=== PATIENT | female | born 1950 | race Caucasian/White ===

== ENCOUNTER 2017-01-17 09:08 | Inpatient (IN) | payer BC ==
[2017-01-14 20:53] LABS: HEMATOCRIT 35.3 % (36.0-48.0); HEMOGLOBIN 11.8 g/dL (12.0-16.0); MEAN CORPUS HGB CONC 33.6 g/dL (32.0-36.0); MEAN CORPUSCULAR VOLUME 89.4 fL (80-100); MEAN PLATELET VOLUME 8.1 fL (6.8-10.8); PLATELET COUNT 406 10/3/uL (150-400); RBC DISTRIBUTION WIDTH 15.6 % (12.0-16.0); RED CELL COUNT 3.94 10/6/uL (4.0-5.6)
[2017-01-14 21:04] LABS: WHITE BLOOD CELLS 6.6 10/3/uL (4.5-10.5)
[2017-01-14 23:18] LABS: A/G RATIO 0.5 (0.7-1.9); ALBUMIN 2.9 G/DL (3.5-5.0); CALCIUM, SERUM 8.8 MG/DL (8.5-10.4); CHLORIDE, SERUM 106 MMOL/L (96-112); CO2 (CARBON DIOXIDE) 21 MMOL/L (24-34); CREATININE 1.57 MG/DL (0.55-1.02); GAMMA GT 58 U/L (5-85); GFR AFRICAN AMERICAN 39 ML/MIN (>=60); GFR NON AFRICAN AMERICAN 34 ML/MIN (>=60); GLOBULIN 6.1 G/DL (2.5-4.1); GLUCOSE, SERUM 102 MG/DL (60-99); SGOT(AST) 428 U/L (5-40); SGPT(ALT) 990 U/L (5-65); SODIUM, SERUM 140 MMOL/L (135-148); TOTAL BILIRUBIN 0.6 MG/DL (0-1.2)
[2017-01-14 23:25] LABS: ALKALINE PHOSPHATASE 175 U/L (45-117); BUN (BLOOD UREA NITROGEN) 14 MG/DL (6-23); POTASSIUM, SERUM 4.3 MMOL/L (3.5-5.3)
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
--- NOTE | ~2017-01-17 | CN ---
Consultation Report [facility] [address] [place]. [address] NAME: KATIE HAY : 46 STATUS : ADM IN [facility]#: [id number] AGE: 66 ADM/REG DATE : 01/17/17 MR#: [id number] REPORT SERV DATE: 01/22/17 DICTATED BY: GM REICH II DATE: 01/21/17 REPORT STATUS : Draft TRANSCRIBED BY: MODLiudmila DATE: 01/21/17 CONSULT DATE OF CONSULTATION: 01/21/2017 REASON FOR CONSULTATION: Subclavian stenosis. HISTORY OF PRESENT ILLNESS: Ms. Hay is a pleasant 66-year-old female who presented with aphasia and history of atrial fibrillation for which she was on anticoagulation for. During her workup, she was found to have evidence of a left subclavian stenosis. The patient has made a recovery from her stroke and now has mild aphasia. She reports occasional discomfort and fatigue in the left arm with occasional claudication symptoms. She reports also a history of dizziness that has been present for over the past several months. She has no complaints in her right upper extremity. PAST MEDICAL HISTORY: Congestive heart failure and hypertension. PAST SURGICAL HISTORY: None. CURRENT MEDICATIONS: Include Coumadin, aspirin, Coreg, Colace, Aldactone, Spiriva, Demadex. ALLERGIES: NONE REPORTED. SOCIAL HISTORY: She lives with her daughter. She has no history of smoking; however, she lived with a heavy smoker for more than 20 years. FAMILY HISTORY: Noncontributory. PHYSICAL EXAMINATION: GENERAL: Awake, alert, pleasant female, in no acute distress. VITAL SIGNS: Her blood pressure is 108/29, respiratory rate is 18, pulse is 70. HEENT: Airways are clear. Mucous membranes are moist. Extraocular movements intact. NECK: No cervical bruits or JVDs noted. UPPER EXTREMITIES: Palpable pulses with diminished radial pulse on the left side. Bruits noted in the left axilla. CHEST: Clear breath sounds equal bilaterally. CARDIOVASCULAR: Regular rate and rhythm. No murmur. ABDOMEN: Soft and nontender. No pulsatile mass. BACK: Symmetric. No focal tenderness. LOWER EXTREMITIES: Palpable femoral pulses with diminished pedal pulses. Scattered varicosities. No edema. No open lesions or ulcerations. NEUROLOGIC: Except for mild expressive aphasia, no other focal neurologic deficits noted. IMAGING: Demonstrates grade 1 carotid stenosis bilaterally without significant occlusive Consultation Report [place] [id number] [place]. [address] NAME: KATIE HAY : 46 STATUS : ADM IN PAT#: [id number] AGE: 66 ADM/REG DATE : 01/17/17 MR#: [id number] REPORT SERV DATE: 01/22/17 DICTATED BY: GM REICH II DATE: 01/21/17 REPORT STATUS : Draft TRANSCRIBED BY: MODL DATE: 01/21/17 disease. Retrograde flow was noted in the left vertebral without abnormal waveforms within the subclavian. ASSESSMENT AND PLAN: A 66-year-old female with severe left subclavian stenosis with retrograde flow within the left vertebral. She has [id number] subclavian steal syndrome with a non-threatened extremities at this time. I have recommended continuing her current medical therapy at this time. We will plan for further evaluation and possible treatment once she has recovered from her recent neurologic event. Also of note, she has diminished pedal pulses and I have recommended arterial Doppler as an outpatient. LILI/JAYCOB Gm Reich II, M.D. / [id number] CC: Yamini Mishra III, D.O.
--- NOTE | ~2017-01-17 | CN ---
Consultation Report [facility] [address] [place]. [address] NAME: KATIE PALAFOX : 46 STATUS : ADM IN PAT#: [id number] AGE: 66 ADM/REG DATE : 01/17/17 MR#: [id number] REPORT SERV DATE: 01/22/17 DICTATED BY: MOSES ZURITA DATE: 01/21/17 REPORT STATUS : Draft TRANSCRIBED BY: MODL DATE: 01/21/17 CONSULTATION DATE OF CONSULTATION: HISTORY OF PRESENT ILLNESS: This is a 66-year-old white female admitted with expressive aphasia, which is improving. MRI has revealed small CVA. Also, her workups included an abnormal narrowing left subclavian artery. Had a history of strep pneumonia requiring three month hospitalization from 07/2016 to 09/2016. Had large pleural effusion, which was treated by Dr. Higgins. Also, has had atrial fib, on Coumadin. INR 2.7 this admission. History of gastroparesis with recent confirmation noted on gastric emptying study. Has been on Reglan for that. Has been trying to wean off. Also had elevated LFTs in July and has recurrent LFTs elevated, which have been slow to trend downward. Ultrasound reveals sludge and gallstones. No current GI complaints. History of cardiomyopathy with CHF. Has been seen by Dr. Sigala for her gallbladder. He felt no surgery indicated. Tissue is more stable. Also, recent UTIs have been treated. SOCIAL HISTORY: Negative. FAMILY HISTORY: Negative. She has had some vaginal bleeding, being worked up by Dr. Rodriguez. Her albumin is 2.8 today. Total bilirubin normal at 0.6. Alkaline phos 168. ALT 595. AST 274. PHYSICAL EXAMINATION: GENERAL: Well-developed, well-nourished white female, alert, still has some difficulty in expressing herself, much improved from admission apparently. HEENT: Anicteric. NECK: Negative. CHEST: Clear to percussion. HEART: Irregular rhythm. ABDOMEN: Soft, nontender. Bowel sounds active. EXTREMITIES/NEUROLOGIC: Again pertinent for some residual expressive aphasia. ASSESSMENT: 1. Expressive aphasia with acute cerebrovascular accident, improving, tolerating diet. 2. Three-month hospitalization 07/2016 to 09/2016 with strep pneumonia. 3. Atrial fibrillation, on Coumadin. INR 2.7. Cardiomyopathy, congestive heart failure. 4. Recent urinary tract infection, treated. 5. Gastroparesis. Tolerating diet. 6. Elevated LFTs. Ultrasound, gallbladder sludge and stones. No GI complaints. Normal bilirubin. These have been elevated on previous admission as well. Her hepatitis A, Consultation Report [place] [id number] [place]. [address] NAME: KATIE PALAFOX : 46 STATUS : ADM IN PAT#: [id number] AGE: 66 ADM/REG DATE : 01/17/17 MR#: [id number] REPORT SERV DATE: 01/22/17 DICTATED BY: MOSES ZURITA DATE: 01/21/17 REPORT STATUS : Draft TRANSCRIBED BY: MODL DATE: 01/21/17 B, and C are negative. Suspect multifactorial etiology, but we will evaluate with further blood work. SUGGESTION: We will check ISABELL, anti smooth muscle antibody, AMA, and repeat LFTs. May need further hepatic imaging if LFTs do not improve. Dr. Curtis will be covering in my absence. Thank you very much for this consultation. ROCAEL/JAYCOB Moses Zurita M.D. / [id number] CC: Yamini Manzanares III, D.O.
--- NOTE | ~2017-01-17 | CN ---
Consultation Report [facility] [address] [place]. [address] NAME: KATIE PALAFOX : 46 STATUS : ADM IN [facility]#: [id number] AGE: 66 ADM/REG DATE : 01/17/17 MR#: [id number] REPORT SERV DATE: 01/21/17 DICTATED BY: DATE: REPORT STATUS : Draft TRANSCRIBED BY: MODL DATE: 01/21/17 NEUROLOGY CONSULTATION DATE OF CONSULTATION: 01/21/2017 REASON FOR CONSULT: Stroke. HISTORY OF PRESENT ILLNESS: This is a 66-year-old female who presented to [facility] secondary to acute onset of difficulty talking with the patient having difficulty getting words out and was noted to be slow to respond but otherwise was not noted to have any dysarthria. No discernible weakness was noted. Symptoms started when the patient woke up on 01/17/2017. The patient was noted to have concurrent urinary tract infection. In addition, the patient was noted to have a recent illness with the patient noted to have gallbladder disease as well as streptococcal pneumonia with subsequent septic shock resulting in acute kidney injury. The patient, in addition, was also noted to have chronic atrial fibrillation, previously on Xarelto and recently changed to Coumadin secondary to again acute kidney injury. The patient, otherwise, has not had any recent illness, fever, chills, nausea, vomiting, chest pain, or shortness of breath. The patient has not had a previous trial of cholesterol medication and no reports of tobacco usage. No other changes of medication recently. PAST MEDICAL HISTORY: The patient's past medical history is significant for recent septic shock as well as gallbladder disease; abnormal liver panel as well as history of congestive heart failure as well as history of hypertension. The patient was followed by Dr. Flores for the patient's gastrointestinal issue with the patient also noted to have a history of gastroparesis. The patient was noted to have multiple drug intolerances including Lovenox, Versed, sulfa, nitrous oxide, Ativan, and codeine. FAMILY HISTORY: Significant for hypertension, metastatic gastric cancer, Parkinson's disease, and lung cancer. SOCIAL HISTORY: Denies tobacco, alcohol, or recreational drug usage. HOME MEDICATIONS: The patient's home medications consist of albuterol; Coreg; ciprofloxacin; docusate; Marinol; Remeron; Dulera; Aldactone; Spiriva; torsemide; and warfarin. The patient reports compliance with the medication. REVIEW OF SYSTEMS: Negative except for those mentioned in the HPI. Of note, the patient does have recent lab work performed at the PCPs office with the patient's lab work reportedly abnormal although specifics was unknown. The patient has had a repeat lab work drawn prior to hospital admission and was noted by the PCP's office to be abnormal again. No specific was otherwise Consultation Report [address] [place]. [address] NAME: KATIE PALAFOX : 46 STATUS : ADM IN PAT#: [id number] AGE: 66 ADM/REG DATE : 01/17/17 MR#: [id number] REPORT SERV DATE: 01/21/17 DICTATED BY: DATE: REPORT STATUS : Draft TRANSCRIBED BY: JAYCOB DATE: 01/21/17 reported. PHYSICAL EXAMINATION: VITAL SIGNS: The patient's overnight vital signs demonstrated T-max of 99.3, heart rate of 59 to 103, respiration of 16 to 20, and blood pressure of 96 to 114 over 54 to 65. GENERAL: The patient is well developed, well nourished, in no acute distress. CARDIOVASCULAR EXAMINATION: Regular rate and rhythm. No carotid bruits were otherwise auscultated. PULMONARY: Examination was clear to auscultation bilaterally. NEUROLOGICAL EXAMINATION: Generally patient is alert and oriented to person, place, year, and month. Mild expressive aphasia was noted. No clear receptive aphasia was noted. The patient was noted to be able to follow simple and 2-step commands and no clear dysarthria was noted. Registration and recall were unreliable secondary to aphasia, delayed verbal response was noted at the time of evaluation. Cranial nerves 2 through 12, pupils equal, round, and reactive to light. Horizontal eye movement was noted to be intact with intact vertical eye movement. Peripheral vision was noted to be intact. No clear visual neglect was noted. The patient does demonstrate a mild decreased nasolabial fold and right-sided facial droop at the time of evaluation. Reports symmetrical facial sensation. Midline tongue. Normal palatal movement and was noted to have minimal decreased hearing in bilateral ears. Mild pronator drift in the right upper extremity. Otherwise, 5/5 bilateral upper extremity strength was noted to have 5/5 bilateral lower extremity strength. Reports symmetrical sensation in bilateral upper and lower extremity. Normal [id number] examination without ataxia. The patient demonstrated normal station and normal gait. LABORATORY STUDIES: Demonstrated white blood cell count of 7.9, hemoglobin of 10.4, hematocrit of 30.5, and platelet count of 316. INR of 2.7. Procalcitonin was 0.41. Sodium of 140, potassium 4.6, chloride 108, bicarb of 25, BUN of 19, and creatinine of 1.57. Glucose of 95. Calcium of 8.5. Hepatitis B is otherwise nonreactive. MRI of the brain was reviewed. Left MCA stroke was noted. Echocardiogram was noted EF of 40 to 45%. Dilated bilateral atrium was noted. No apical thrombus was seen. Carotid Doppler study demonstrated no acute stenosis. IMPRESSION: 1. Left MCA stroke. We will continue Coumadin. We will start the patient on Lipitor 40 mg p.o. at bedtime. 2. Unfortunately,we will not start the patient on full-dose Lipitor secondary to elevated liver function panel. We will continue speech therapy and arrange for rehabilitation. The patient's current NIH stroke scale was noted to be 3. 3. Abnormal lab study. We will obtain records from the patient's primary care physician. RECOMMENDATIONS: 1. Lipitor 40 mg p.o. at bedtime. We will monitor liver function tests. 2. Aspirin and Coumadin. 3. Records from PCP's office. 4. PT/OT. 5. Rehab. Consultation Report [address] [place]. [address] NAME: KATIE PALAFOX : 46 STATUS : ADM IN [facility]#: [id number] AGE: 66 ADM/REG DATE : 01/17/17 MR#: [id number] REPORT SERV DATE: 01/21/17 DICTATED BY: DATE: REPORT STATUS : Draft TRANSCRIBED BY: MODL DATE: 01/21/17 [facility]/MODLiudmila Carlos Serrano MD / [id number] CC: Yamini Mishra III, D.O.
[~2017-01-17 09:08] MED LIST: 8 HOUR650 MG PO; ADVIL PO; ALPHA LIPOIC ACID 200 MG PO; CAPSAICIN CREAM TOP; CHONDR PO; CIP5 PO; CO Q-10200 MG PO; COENZYME Q10 PO; GLUCOSA PO; KDUR20 PO; L20 PO; MAXIMUM D3 PO; NASONEX NAS; NORCO1 TA1 PO; PR25 PO; PR25R PR; PRIN2.5 PO; PROBIOTIC OTC PO; TOPXL25 PO; VASCULERA 630 MG PO; VASCULERA PO; VITAMIN C PO; VITAMIN D PO; VITC500 PO; XARELTO20 MG PO; ZESTRIL2.5 MG PO; ZOFRANODT8 PO
[2017-01-17 10:09] LABS: BASOPHILS 0.7 %; BASOPHILS ABSOLUTE 0.06 10/3/uL (0.0-0.16); EOSINOPHILS 1.6 %; EOSINOPHILS ABSOLUTE 0.13 10/3/uL (0.0-0.53); HEMATOCRIT 32.5 % (36.0-48.0); HEMOGLOBIN 11.1 g/dL (12.0-16.0); IMMATURE GRANULOCYTES 0.5 %; IMMATURE GRANULOCYTES ABSOLUTE 0.04 10/3/uL (0.0-0.11); LYMPHOCYTES 23.4 %; LYMPHOCYTES ABSOLUTE 1.92 10/3/uL (0.67-4.30); MEAN CORPUS HGB CONC 34.2 g/dL (32.0-36.0); MEAN CORPUSCULAR HEMOGLOB 30.3 pg (26.0-34.0); MEAN CORPUSCULAR VOLUME 88.8 fL (80-100); MEAN PLATELET VOLUME 8.8 fL (9.2-13.0); MONOCYTES 4.1 %; MONOCYTES ABSOLUTE 0.34 10/3/uL (0.21-1.20); NEUTROPHILS 69.7 %; NEUTROPHILS ABSOLUTE 5.72 10/3/uL (2.02-8.40); PLATELET COUNT 336 10/3/uL (150-400); RBC DISTRIBUTION WIDTH 14.5 % (12.0-16.0); RED CELL COUNT 3.66 10/6/uL (4.0-5.6); WHITE BLOOD CELLS 8.2 10/3/uL (4.5-10.5)
[2017-01-17 10:10] LABS: ER CBC TAT 0 Hrs 05 Mins; MANUAL DIFF NO %
[2017-01-17 10:17] LABS: PARTIAL THROMBO TIME 38.6 SEC (22.5-37.2); PROTIME (NOT ORD) 22.2 SEC (12.0-14.5)
[2017-01-17 10:28] LABS: A/G RATIO 0.5 (0.7-1.9); ALBUMIN 2.7 G/DL (3.5-5.0); ALKALINE PHOSPHATASE 160 U/L (45-117); BUN (BLOOD UREA NITROGEN) 18 MG/DL (6-23); CALCIUM, SERUM 8.4 MG/DL (8.5-10.4); CHLORIDE, SERUM 112 MMOL/L (96-112); CO2 (CARBON DIOXIDE) 23 MMOL/L (24-34); CREATININE 1.35 MG/DL (0.55-1.02); GFR AFRICAN AMERICAN 47 ML/MIN (>=60); GFR NON AFRICAN AMERICAN 40 ML/MIN (>=60); GLOBULIN 5.3 G/DL (2.5-4.1); GLUCOSE, SERUM 91 MG/DL (60-99); POTASSIUM, SERUM 3.7 MMOL/L (3.5-5.3); SGOT(AST) 422 U/L (5-40); SGPT(ALT) 869 U/L (5-65); SODIUM, SERUM 141 MMOL/L (135-148); TOTAL BILIRUBIN 0.7 MG/DL (0-1.2)
[2017-01-17 10:31] LABS: LACTATE 1.2 MMOL/L (0.3-2.4)
[2017-01-17] MEDS ORDERED: DEMA10T PO (10:46)
[2017-01-17] MEDS ORDERED: COREG3 PO (10:47)
[2017-01-17] MEDS ORDERED: COUMADIN4 MG PO (10:47)
[2017-01-17] MEDS ORDERED: REM15 PO (10:50)
[2017-01-17] MEDS ORDERED: SPIRO25 PO (10:50)
[2017-01-17] MEDS ORDERED: CIP2 PO (10:50)
[2017-01-17 10:51] LABS: PROCALCITONIN 0.58 ng/mL (<0.5)
[2017-01-17] MEDS ORDERED: D.O.S.100 MG PO (10:51)
[2017-01-17] MEDS ORDERED: PROAIR HFA INH (10:52)
[2017-01-17] MEDS ORDERED: SPIRIVA INH (10:52)
[2017-01-17] MEDS ORDERED: DULERA 200 MCG/13 GM INH (10:52)
[2017-01-17] MEDS ORDERED: MARI5 PO (10:53)
[2017-01-17 19:36] LABS: CHOL/HDL RATIO(NOT ORDER) 8.6 (0-5); CHOLESTEROL 249 MG/DL (< 200); HDL CHOLESTEROL 29 MG/DL (> 49); LDL CHOLESTEROL 173 MG/DL (< 130); NON-HDL CHOLESTEROL 220 MG/DL (< 160); TRIGLYCERIDE 236 MG/DL (< 150)
[2017-01-17 19:53] LABS: ASCORBIC ACID (UR NOT ORDER) NEG (NEG); BILIRUBIN, URINE NEGATIVE (NEG); KETONE, URINE NEGATIVE (NEG); LEUKOCYTE ESTERASE(NOT OR NEG (NEG); WBC (NOT ORDERED) (RFLEX) 5 (0-5)
[2017-01-18 07:01] LABS: BASOPHILS 0.6 %; BASOPHILS ABSOLUTE 0.04 10/3/uL (0.0-0.16); EOSINOPHILS 2.4 %; EOSINOPHILS ABSOLUTE 0.15 10/3/uL (0.0-0.53); HEMATOCRIT 30.7 % (36.0-48.0); HEMOGLOBIN 10.4 g/dL (12.0-16.0); IMMATURE GRANULOCYTES 0.6 %; IMMATURE GRANULOCYTES ABSOLUTE 0.04 10/3/uL (0.0-0.11); LYMPHOCYTES 35.1 %; LYMPHOCYTES ABSOLUTE 2.22 10/3/uL (0.67-4.30); MEAN CORPUS HGB CONC 33.9 g/dL (32.0-36.0); MEAN CORPUSCULAR HEMOGLOB 30.4 pg (26.0-34.0); MEAN CORPUSCULAR VOLUME 89.8 fL (80-100); MEAN PLATELET VOLUME 8.9 fL (9.2-13.0); MONOCYTES 6.2 %; MONOCYTES ABSOLUTE 0.39 10/3/uL (0.21-1.20); NEUTROPHILS 55.1 %; NEUTROPHILS ABSOLUTE 3.48 10/3/uL (2.02-8.40); PLATELET COUNT 311 10/3/uL (150-400); RBC DISTRIBUTION WIDTH 14.8 % (12.0-16.0); RED CELL COUNT 3.42 10/6/uL (4.0-5.6); WHITE BLOOD CELLS 6.3 10/3/uL (4.5-10.5)
[2017-01-18 07:06] LABS: INTERNATIONAL NORMAL RATI 2.2 UNITS (-); PROTIME (NOT ORD) 24.5 SEC (12.0-14.5)
[2017-01-18 07:07] LABS: MANUAL DIFF NO %
[2017-01-18 07:20] LABS: ALBUMIN 2.3 G/DL (3.5-5.0); BUN (BLOOD UREA NITROGEN) 15 MG/DL (6-23); CHLORIDE, SERUM 114 MMOL/L (96-112); CO2 (CARBON DIOXIDE) 22 MMOL/L (24-34); CREATININE 1.26 MG/DL (0.55-1.02); GFR AFRICAN AMERICAN 51 ML/MIN (>=60); GFR NON AFRICAN AMERICAN 44 ML/MIN (>=60); POTASSIUM, SERUM 4.1 MMOL/L (3.5-5.3); SGOT(AST) 293 U/L (5-40); SGPT(ALT) 660 U/L (5-65); SODIUM, SERUM 143 MMOL/L (135-148); TOTAL PROTEIN 6.5 G/DL (6.0-8.5)
[2017-01-18 07:26] LABS: A/G RATIO 0.5 (0.7-1.9); ALKALINE PHOSPHATASE 146 U/L (45-117); GLOBULIN 4.2 G/DL (2.5-4.1); GLUCOSE, SERUM 104 MG/DL (60-99); TOTAL BILIRUBIN 1.2 MG/DL (0-1.2)
[2017-01-19 10:00] LABS: INTERNATIONAL NORMAL RATI 2.4 UNITS (-); PROTIME (NOT ORD) 25.5 SEC (12.0-14.5)
[2017-01-19 10:48] LABS: A/G RATIO 0.5 (0.7-1.9); ALBUMIN 2.3 G/DL (3.5-5.0); ALKALINE PHOSPHATASE 147 U/L (45-117); BUN (BLOOD UREA NITROGEN) 14 MG/DL (6-23); CALCIUM, SERUM 8.6 MG/DL (8.5-10.4); CHLORIDE, SERUM 111 MMOL/L (96-112); CO2 (CARBON DIOXIDE) 20 MMOL/L (24-34); CREATININE 1.36 MG/DL (0.55-1.02); GFR AFRICAN AMERICAN 46 ML/MIN (>=60); GFR NON AFRICAN AMERICAN 40 ML/MIN (>=60); GLUCOSE, SERUM 97 MG/DL (60-99); POTASSIUM, SERUM 3.9 MMOL/L (3.5-5.3); SGOT(AST) 295 U/L (5-40); SGPT(ALT) 623 U/L (5-65); SODIUM, SERUM 139 MMOL/L (135-148); TOTAL PROTEIN 7.3 G/DL (6.0-8.5)
[2017-01-19 10:49] LABS: TOTAL BILIRUBIN 0.7 MG/DL (0-1.2)
[2017-01-20 05:26] LABS: INTERNATIONAL NORMAL RATI 2.7 UNITS (-); PROTIME (NOT ORD) 28.5 SEC (12.0-14.5)
[2017-01-20 05:30] LABS: BASOPHILS 0.6 %; BASOPHILS ABSOLUTE 0.05 10/3/uL (0.0-0.16); EOSINOPHILS 1.7 %; EOSINOPHILS ABSOLUTE 0.13 10/3/uL (0.0-0.53); HEMATOCRIT 30.5 % (36.0-48.0); HEMOGLOBIN 10.4 g/dL (12.0-16.0); IMMATURE GRANULOCYTES 0.5 %; IMMATURE GRANULOCYTES ABSOLUTE 0.04 10/3/uL (0.0-0.11); LYMPHOCYTES 34.9 %; LYMPHOCYTES ABSOLUTE 2.74 10/3/uL (0.67-4.30); MANUAL DIFF NO %; MEAN CORPUS HGB CONC 34.1 g/dL (32.0-36.0); MEAN CORPUSCULAR HEMOGLOB 30.5 pg (26.0-34.0); MEAN CORPUSCULAR VOLUME 89.4 fL (80-100); MONOCYTES ABSOLUTE 0.47 10/3/uL (0.21-1.20); NEUTROPHILS 56.3 %; NEUTROPHILS ABSOLUTE 4.43 10/3/uL (2.02-8.40); PLATELET COUNT 316 10/3/uL (150-400); RBC DISTRIBUTION WIDTH 14.6 % (12.0-16.0); RED CELL COUNT 3.41 10/6/uL (4.0-5.6); WHITE BLOOD CELLS 7.9 10/3/uL (4.5-10.5)
[2017-01-20 05:44] LABS: A/G RATIO 0.5 (0.7-1.9); ALBUMIN 2.4 G/DL (3.5-5.0); CHLORIDE, SERUM 108 MMOL/L (96-112); CREATININE 1.57 MG/DL (0.55-1.02); GFR AFRICAN AMERICAN 39 ML/MIN (>=60); GFR NON AFRICAN AMERICAN 34 ML/MIN (>=60); GLOBULIN 5.2 G/DL (2.5-4.1); POTASSIUM, SERUM 4.6 MMOL/L (3.5-5.3); SODIUM, SERUM 140 MMOL/L (135-148); TOTAL PROTEIN 7.6 G/DL (6.0-8.5)
[2017-01-20 05:45] LABS: BUN (BLOOD UREA NITROGEN) 19 MG/DL (6-23); CO2 (CARBON DIOXIDE) 25 MMOL/L (24-34); SGOT(AST) 298 U/L (5-40); SGPT(ALT) 585 U/L (5-65)
[2017-01-20 05:46] LABS: ALKALINE PHOSPHATASE 138 U/L (45-117); CALCIUM, SERUM 8.5 MG/DL (8.5-10.4); GLUCOSE, SERUM 95 MG/DL (60-99); TOTAL BILIRUBIN 0.5 MG/DL (0-1.2)
[2017-01-20 12:08] LABS: PROCALCITONIN 0.41 ng/mL (<0.5)
[2017-01-21 05:31] LABS: INTERNATIONAL NORMAL RATI 2.7 UNITS (-); PROTIME (NOT ORD) 28.3 SEC (12.0-14.5)
[2017-01-21 11:37] LABS: HEPATITIS B SURFACE ANTIGEN NON-REACTIVE (NON-REACT)
[2017-01-21 12:05] LABS: HEPATITIS B CORE AB IGM NON-REACTIVE (NON-REAC); HEPATITIS C ANTIBODY NON-REACTIVE (NON-REACT)
[2017-01-21 12:07] LABS: HEP A ANTIBODY IGM NON-REACTIVE (NON-REACT)
[2017-01-21 14:40] LABS: A/G RATIO 0.6 (0.7-1.9); ALBUMIN 2.8 G/DL (3.5-5.0); BUN (BLOOD UREA NITROGEN) 19 MG/DL (6-23); CALCIUM, SERUM 8.7 MG/DL (8.5-10.4); CHLORIDE, SERUM 109 MMOL/L (96-112); CO2 (CARBON DIOXIDE) 22 MMOL/L (24-34); CREATININE 1.34 MG/DL (0.55-1.02); GFR AFRICAN AMERICAN 47 ML/MIN (>=60); GFR NON AFRICAN AMERICAN 41 ML/MIN (>=60); GLOBULIN 4.4 G/DL (2.5-4.1); POTASSIUM, SERUM 4.4 MMOL/L (3.5-5.3); SGOT(AST) 274 U/L (5-40); SGPT(ALT) 595 U/L (5-65); SODIUM, SERUM 140 MMOL/L (135-148); TOTAL BILIRUBIN 0.6 MG/DL (0-1.2); TOTAL PROTEIN 7.2 G/DL (6.0-8.5)
[2017-01-21 14:42] LABS: ALKALINE PHOSPHATASE 168 U/L (45-117)
[2017-01-21 14:43] LABS: GLUCOSE, SERUM 58 MG/DL (60-99)
[2017-01-22 06:31] LABS: INTERNATIONAL NORMAL RATI 2.6 UNITS (-); PROTIME (NOT ORD) 27.5 SEC (12.0-14.5)
[2017-01-22 06:41] LABS: A/G RATIO 0.5 (0.7-1.9); ALBUMIN 2.5 G/DL (3.5-5.0); BUN (BLOOD UREA NITROGEN) 19 MG/DL (6-23); CHLORIDE, SERUM 108 MMOL/L (96-112); CO2 (CARBON DIOXIDE) 25 MMOL/L (24-34); CREATININE 1.43 MG/DL (0.55-1.02); GFR AFRICAN AMERICAN 44 ML/MIN (>=60); GFR NON AFRICAN AMERICAN 38 ML/MIN (>=60); GLOBULIN 5.1 G/DL (2.5-4.1); POTASSIUM, SERUM 4.3 MMOL/L (3.5-5.3); SODIUM, SERUM 141 MMOL/L (135-148); TOTAL PROTEIN 7.6 G/DL (6.0-8.5)
[2017-01-22 06:44] LABS: ALKALINE PHOSPHATASE 158 U/L (45-117); CALCIUM, SERUM 8.2 MG/DL (8.5-10.4); DIRECT BILIRUBIN 0.1 MG/DL (0.0-0.4); GLUCOSE, SERUM 103 MG/DL (60-99); INDIRECT BILIRUBIN(NOT ORDER) 0.4 MG/DL (0.1-0.9); TOTAL BILIRUBIN 0.5 MG/DL (0-1.2)
[2017-01-22 06:45] LABS: SGOT(AST) 242 U/L (5-40); SGPT(ALT) 533 U/L (5-65)
[2017-01-22 10:41] LABS: ANA TITER <1:40 TITER
[2017-01-22] MEDS ORDERED: ASAB PO (12:35)
[2017-01-22] MEDS ORDERED: ACULARLS OPH (12:35)
[2017-01-22] MEDS ORDERED: MELA3 PO (12:44)
[2017-01-24 13:56] LABS: MITOCHONDRIAL ANTIBODY Negative (NEG); SMOOTH MUSCLE ANTIBODIES Negative (NEG)
[2017-04-29] MEDS ORDERED: DEMA10T (18:27)
[2017-04-29] MEDS ORDERED: XARELTO15 MG PO ×2 (18:27→20:11)
[2017-04-29] MEDS ORDERED: ASAB PO (20:11)
[2017-04-29] MEDS ORDERED: REM15 PO (20:11)
[2017-04-29] MEDS ORDERED: COREG3 PO (20:11)
[2017-04-29] MEDS ORDERED: DSS PO (20:11)
[2017-04-29] MEDS ORDERED: MELA3 PO (20:12)
[2017-04-29] MEDS ORDERED: DEMADEX5 MG PO (20:12)
[2017-04-29] MEDS ORDERED: KETOCONAZOLE 2% SHAM TOP (20:13)
[2017-04-29] MEDS ORDERED: PROAIR HFA INH (20:14)
[2017-04-29] MEDS ORDERED: [UNRECOGNIZED DRUG - OTHER] OPH (20:16)
[2017-05-05] MEDS ORDERED: AUG875 PO (15:17)
[2017-05-05] MEDS ORDERED: MARI2.5 PO (15:18)
[2017-05-05] MEDS ORDERED: ZOFRAN4 PO (15:19)
[2017-05-05] MEDS ORDERED: FLORASTOR250 MG PO (15:19)
[2017-05-05] MEDS ORDERED: MSIMMR15 PO (15:20)
== END 2017-01-22 15:00 | disposition home or self-care (01) | DRG 65 ==
LOC: ER 09:08 → 1SO 15:19
PROVIDERS: Emergency Medicine; Family Medicine; Hospitalist; Internal Medicine; Internal Medicine Gastroenterology
DX: I63.233 Cerebral infarction due to unspecified occlusion or stenosis of bilateral carotid arteries (principal); I13.0 Hypertensive heart and chronic kidney disease with heart failure and stage 1 through stage 4 chronic kidney disease, or unspecified chronic kidney disease; I42.9 Cardiomyopathy, unspecified; R47.01 Aphasia; K31.84 Gastroparesis; I50.22 Chronic systolic (congestive) heart failure; I48.2 Chronic atrial fibrillation; N39.0 Urinary tract infection, site not specified; I08.1 Rheumatic disorders of both mitral and tricuspid valves; I73.9 Peripheral vascular disease, unspecified; N18.3 Chronic kidney disease, stage 3 (moderate); I77.1 Stricture of artery; K80.20 Calculus of gallbladder without cholecystitis without obstruction; N93.8 Other specified abnormal uterine and vaginal bleeding; Z87.01 Personal history of pneumonia (recurrent); Z79.82 Long term (current) use of aspirin; Z79.01 Long term (current) use of anticoagulants; Z79.899 Other long term (current) drug therapy; Z88.2 Allergy status to sulfonamides; Z88.5 Allergy status to narcotic agent; Z88.8 Allergy status to other drugs, medicaments and biological substances; R94.5 Abnormal results of liver function studies
CPT/HCPCS: 36415; 70450; 70551; 71010; 76705; 80053; 80061; 80074; 81001; 82150; 82248; 82977; 83036; 83605; 83690; 83735; 84145; 85025; 85027; 85610; 85730; 86039; 86255; 87040; 92523-GN; 93005; 93306; 93306-PO; 93880; 94640; 97110-GO; 97112-GO; 97161-GP; 97166-GO; 99285; A9270-GY; G0463; G8987-CH-GO; G8988-CH-GO; G8989-CH-GO